=== PATIENT | male | born 1985 | race Caucasian/White ===

== ENCOUNTER 2017-09-13 19:15 | Emergency (ER) | payer BC ==
[~2017-09-13 19:15] MED LIST: AMOX-559 PO; LORA-630 PO; MECL25TA9 PO; MOMR ENA; NO HOME MEDS
--- NOTE | 2017-09-13 19:32 | ER Report ---
History and Physical Time Seen By MD: 19:20 Hx. of Stated Complaint: Patient reporting bilateral lower quadrant abdominal pain since yesterday. Worse while at work. Patient had nausea yesterday but today reports normal BM' s and no N/V/D HPI/ROS CHIEF COMPLAINT: Abdominal pain HISTORY OF PRESENT ILLNESS: Patient is a 32-year-old male who presents the ED with complaint of abdominal pain for the past day. He states that he started to notice some slight lower abdominal pain last night that has worsened today. He states that it was particularly worse while he was working. 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 He states that he did have some nausea but denies any vomiting. He has had normal bowel movements and denies any diarrhea or constipation. He denies any black or bloody bowel movements. He states that he has had no abdominal surgeries in the past. He denies any pain with eating. He has not noted any fever. REVIEW OF SYSTEMS: Constitutional: No fever, no chills. Cardiovascular: No chest pain, no palpitations. Respiratory: No cough, no shortness of breath. Gastrointestinal: See history of present illness. Genitourinary: Patient denies any hematuria, dysuria, increased urinary frequency, testicular pain. Musculoskeletal: No back pain. Skin: No rashes. Neurological: No headache. Allergies: Coded Allergies: No Known Drug Allergies (Unverified , 09/01/14) Home Meds Active Scripts Mometasone Furoate (NASONEX) 17 Gm Boykins, 17 GM CARRIE BID, #1 SPRAY 0 Refills Prov:JENNIFER RODRIGUEZ MD 10/23/15 Meclizine Hcl (MECLIZINE HCL) 25 Mg Tablet, 25 MG PO TID Y for DIZZINESS, #20 TAB 0 Refills Prov:JENNIFER RODRIGUEZ MD 10/23/15 Amoxicillin/Pot Clav 875-125 Mg Tab (AUGMENTIN 875-125 TABLET) 1 Each Tablet, 1 TAB PO Q12H, #20 TAB 0 Refills Prov:JENNIFER RODRIGUEZ MD 10/23/15 Hx Smoking: Yes Smoking Status: Current: Every Day Smoker Constitutional Vital Sign - Last 24 Hours 09/13/17 09/13/17 09/13/17 09/13/17 19:20 19:22 19:25 19:30 Temp 98.0 Pulse 85 88 95 Resp 19 B/P (MAP) 144/90 (108) 144/90 Pulse Ox 94 92 91 O2 Delivery Room Air 09/13/17 09/13/17 09/13/17 09/13/17 19:36 19:39 19:40 19:45 Temp 98.1 Pulse 83 84 B/P (MAP) 127/87 (100) 134/83 (100) Pulse Ox 89 91 09/13/17 09/13/17 09/13/17 09/13/17 19:50 19:55 20:00 20:05 Pulse 83 84 89 85 B/P (MAP) 142/76 (98) Pulse Ox 91 91 89 91 09/13/17 09/13/17 09/13/17 09/13/17 20:10 20:15 20:20 20:35 Pulse 84 79 78 75 B/P (MAP) 122/80 (94) Pulse Ox 91 90 88 93 Physical Exam General Appearance: The patient is alert, has no immediate need for airway protection and no signs of toxicity. Patient appears to be no acute distress. Eyes: Pupils equal and round no pallor or injection. ENT, Mouth: Mucous membranes are moist. Respiratory: There are no retractions, lungs are clear to auscultation. Cardiovascular: Regular rate and rhythm. Gastrointestinal: There is right lower quadrant left lower quadrant tenderness with palpation. Patient states her right lower quadrant tenderness is more prevalent. No rebound or guarding is present. Normal bowel sounds in all 4 quadrants. Skin: Warm and dry, no rashes. Musculoskeletal: Neck is supple non tender. Extremities are nontender, nonswollen and have full range of motion. DIFFERENTIAL DIAGNOSIS: After history and physical exam differential diagnosis was considered for abdominal pain including but not limited to appendicitis, cholecystitis, gastritis and urinary tract infection. Medical Decision Making Data Points Result Diagram: 09/13/17193109/13/171931 Laboratory Hematology Test 09/13/17 19:32 Red Blood Count 5.21 M/uL (4.00-5.60) Mean Corpuscular Volume 93.0 fL (80.0-96.0) Mean Corpuscular Hemoglobin 33.3 pg (26.0-33.0) Mean Corpuscular Hemoglobin Concent 35.8 g/dL (32.0-36.0) Red Cell Distribution Width 13.1 % (11.5-14.5) Mean Platelet Volume 8.8 fL (7.2-11.1) Neutrophils (%) (Auto) 57.2 % (39.4-72.5) Lymphocytes (%) (Auto) 33.5 % (17.6-49.6) Monocytes (%) (Auto) 7.0 % (4.1-12.4) Eosinophils (%) (Auto) 1.0 % (0.4-6.7) Basophils (%) (Auto) 1.3 % (0.3-1.4) Nucleated RBC Relative Count (auto) 0.1 /100WBC Neutrophils # (Auto) 4.5 K/uL (2.0-7.4) Lymphocytes # (Auto) 2.6 K/uL (1.3-3.6) Monocytes # (Auto) 0.6 K/uL (0.3-1.0) Eosinophils # (Auto) 0.1 K/uL (0.0-0.5) Basophils # (Auto) 0.1 K/uL (0.0-0.1) Nucleated RBC Absolute Count (auto) 0.00 K/uL Peripheral Blood Smear No Y/N Urine Color Yellow Urine Clarity Clear Urine pH 6.0 pH (4.8-9.5) Urine Specific Walton 1.016 Urine Protein Negative mg/dL (NEGATIVE) Urine Glucose (UA) Negative mg/dL (NEGATIVE) Urine Ketones Negative mg/dL (NEGATIVE) Urine Blood Negative (NEGATIVE) Urine Nitrite Negative (NEGATIVE) Urine Bilirubin Negative (NEGATIVE) Urine Urobilinogen Negative mg/dL (0.2-1.9) Urine Leukocyte Esterase Negative (NEGATIVE) Urine RBC None /HPF (0-2/HPF) Urine WBC <1 /HPF (0-5/HPF) Urine Squamous Epithelial Cells None /LPF (</=FEW) Urine Bacteria Negative /HPF (NONE-FEW) Urine Mucus None /HPF (NONE-FEW) Sodium Level 140 mmol/L (137-145) Potassium Level 3.6 mmol/L (3.5-5.0) Chloride Level 103 mmol/L (98-107) Carbon Dioxide Level 27 mmol/L (22-30) Blood Urea Nitrogen 19 mg/dl (9-21) Creatinine 1.00 mg/dl (0.66-1.25) Glomerular Filtration Rate Calc > 60.0 Random Glucose 97 mg/dl (75-110) Calcium Level 9.5 mg/dl (8.4-10.2) Total Bilirubin 0.4 mg/dl (0.2-1.3) Aspartate Amino Transf (AST/SGOT) 28 U/L (0-35) Alanine Aminotransferase (ALT/SGPT) 41 U/L (0-56) Alkaline Phosphatase 82 U/L (0-126) Total Protein 7.6 gm/dl (6.3-8.2) Albumin 4.3 g/dl (3.5-5.0) Lipase 71 U/L (23-300) Chemistry Test 09/13/17 19:32 White Blood Count 7.9 k/uL (4.5-11.0) Red Blood Count 5.21 M/uL (4.00-5.60) Hemoglobin 17.3 g/dL (14.0-18.0) Hematocrit 48.4 % (42.0-52.0) Mean Corpuscular Volume 93.0 fL (80.0-96.0) Mean Corpuscular Hemoglobin 33.3 pg (26.0-33.0) Mean Corpuscular Hemoglobin Concent 35.8 g/dL (32.0-36.0) Red Cell Distribution Width 13.1 % (11.5-14.5) Platelet Count 249 K/uL (150-450) Mean Platelet Volume 8.8 fL (7.2-11.1) Neutrophils (%) (Auto) 57.2 % (39.4-72.5) Lymphocytes (%) (Auto) 33.5 % (17.6-49.6) Monocytes (%) (Auto) 7.0 % (4.1-12.4) Eosinophils (%) (Auto) 1.0 % (0.4-6.7) Basophils (%) (Auto) 1.3 % (0.3-1.4) Nucleated RBC Relative Count (auto) 0.1 /100WBC Neutrophils # (Auto) 4.5 K/uL (2.0-7.4) Lymphocytes # (Auto) 2.6 K/uL (1.3-3.6) Monocytes # (Auto) 0.6 K/uL (0.3-1.0) Eosinophils # (Auto) 0.1 K/uL (0.0-0.5) Basophils # (Auto) 0.1 K/uL (0.0-0.1) Nucleated RBC Absolute Count (auto) 0.00 K/uL Peripheral Blood Smear No Y/N Urine Color Yellow Urine Clarity Clear Urine pH 6.0 pH (4.8-9.5) Urine Specific Walton 1.016 Urine Protein Negative mg/dL (NEGATIVE) Urine Glucose (UA) Negative mg/dL (NEGATIVE) Urine Ketones Negative mg/dL (NEGATIVE) Urine Blood Negative (NEGATIVE) Urine Nitrite Negative (NEGATIVE) Urine Bilirubin Negative (NEGATIVE) Urine Urobilinogen Negative mg/dL (0.2-1.9) Urine Leukocyte Esterase Negative (NEGATIVE) Urine RBC None /HPF (0-2/HPF) Urine WBC <1 /HPF (0-5/HPF) Urine Squamous Epithelial Cells None /LPF (</=FEW) Urine Bacteria Negative /HPF (NONE-FEW) Urine Mucus None /HPF (NONE-FEW) Glomerular Filtration Rate Calc > 60.0 Calcium Level 9.5 mg/dl (8.4-10.2) Total Bilirubin 0.4 mg/dl (0.2-1.3) Aspartate Amino Transf (AST/SGOT) 28 U/L (0-35) Alanine Aminotransferase (ALT/SGPT) 41 U/L (0-56) Alkaline Phosphatase 82 U/L (0-126) Total Protein 7.6 gm/dl (6.3-8.2) Albumin 4.3 g/dl (3.5-5.0) Lipase 71 U/L (23-300) Urinalysis Test 09/13/17 19:32 Urine Color Yellow Urine Clarity Clear Urine pH 6.0 pH (4.8-9.5) Urine Specific Walton 1.016 Urine Protein Negative mg/dL (NEGATIVE) Urine Glucose (UA) Negative mg/dL (NEGATIVE) Urine Ketones Negative mg/dL (NEGATIVE) Urine Blood Negative (NEGATIVE) Urine Nitrite Negative (NEGATIVE) Urine Bilirubin Negative (NEGATIVE) Urine Urobilinogen Negative mg/dL (0.2-1.9) Urine Leukocyte Esterase Negative (NEGATIVE) Urine RBC None /HPF (0-2/HPF) Urine WBC <1 /HPF (0-5/HPF) Urine Squamous Epithelial Cells None /LPF (</=FEW) Urine Bacteria Negative /HPF (NONE-FEW) Urine Mucus None /HPF (NONE-FEW) EKG/Imaging Imaging CT Abdomen/Pelvis: IMPRESSION: Negative CT abdomen and pelvis. Report Dictated By: Sebastian Leal MD at 09/13/2017 8:48 PM Report E-Signed By: Sebastian Leal MD at 09/13/2017 8:55 PM ED Course/Re-evaluation Clinical Indication for ER IV: Hydration ED Course Will obtain labs from patient. 09/13/2017 9:03:22 pm - discussed all labs and imaging with patient. There appears to be no evidence of appendicitis or other acute abdominal issue. Do not find any hernia on exam but he does have pain in the right inguinal area. However there is no palpable mass. Discussed with him that he should follow up with his primary care provider regarding this and having further imaging or referral if needed for possible/potential hernia. Decision to Disposition Date: Sep 13, 2017 Decision to Disposition Time: 21:04 Depart Departure Latest Vital Signs Vital Signs Date Time Temp Pulse Resp B/P (MAP) Pulse Ox O2 Delivery O2 Flow Rate FiO2 09/13/17 20:35 75 93 09/13/17 20:20 122/80 (94) 09/13/17 19:39 98.1 09/13/17 19:22 19 Room Air Impression: Primary Impression: Abdominal pain Condition: Improved Disposition: HOME OR SELF-CARE Referrals: CHRISSY CHUA MD Patient Instructions: Abdominal Pain (ED), Inguinal Hernia (ED) Additional Instructions: Follow-up with primary care provider in 2-3 days. Try to stay away from exertional activity. If having any worsening or concerning symptoms may return to the emergency department. Problem Qualifiers Primary Impression: Abdominal pain Abdominal location: lower abdomen, unspecified Qualified Codes: R10.30 - Lower abdominal pain, unspecified KYUNG LOMELI PA-C Sep 13, 2017 19:32
[2017-09-13 19:43] LABS: PLATELET COUNT, AUTOMATED 249 K/uL (150-450)
--- NOTE | 2017-09-13 20:59 | RADIOLOGY IMAGING REPORT ---
FACILITY: [facility] PATIENT NAME: Atif Muñoz : 1985 MR: [id number] V: [id number] EXAM DATE: ORDERING PHYSICIAN: KYUNG LOMELI TECHNOLOGIST: [place] [facility] [place]: Atif Muñoz : 1985 Visit/Account:[id number] Date of Sevice: 09/13/2017 EXAMINATION: CT abdomen and pelvis with contrast COMPARISON: None. HISTORY: Right and left lower quadrant abdominal pain. PROCEDURE: Multiplanar contrast enhanced CT of the abdomen and pelvis with 75 mL intravenous Isovue 3 70. One of the following dose optimization techniques was utilized in the performance of this exam: A utomated exposure control; adjustment of the mA and/or kV according to the patient's size; or use of an iterative reconstruction technique. Specific details can be referenced in the facility's radiolo gy CT exam operational policy. FINDINGS: Visualized thorax: Negative. Liver: Negative. Gallbladder and biliary system: Contracted but otherwise unremarkable gallbladder. No bile duct dilat ion. Spleen: Spleen size is normal. Pancreas: Negative. Adrenal glands: Negative. Kidneys and bladder: No renal mass or evidence of an obstructive uropathy. Urinary bladder is unrema rkable. Vessels: Within normal limits. Bowel and mesentery: Stomach is within normal limits. No small bowel obstruction. Appendix is unrem arkable. Small amount of stool within the colon. No bowel or mesenteric inflammation. Pelvic organs: Negative. Lymph nodes: No adenopathy. Free air/free fluid: None. Abdominal wall and osseous structures: Negative. IMPRESSION: Negative CT abdomen and pelvis. Report Dictated By: Sebastian Leal MD at 09/13/2017 8:48 PM Report E-Signed By: Sebastian Leal MD at 09/13/2017 8:55 PM WSN:[id number]
[2017-09-13 21:23] VITALS: BP 132/82
== END 2017-09-13 21:27 | disposition home or self-care (01) ==
LOC: ER 19:30
DX: R10.31 Right lower quadrant pain (principal); R10.32 Left lower quadrant pain; R11.0 Nausea
CPT/HCPCS: 74177; 81001; 83690; 85025; 99284; J7050; Q9967; 82040; 82247; 82310; 82374; 82435; 82565; 82947; 84075; 84132; 84155; 84295; 84450; 84460; 84520

== ENCOUNTER 2018-08-04 19:10 | Emergency (ER) | payer BC ==
[2018-08-04 19:14] VITALS: BP 145/88
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
[2018-08-04] MEDS ORDERED: ACET/HYDROC 5/325MG TH ER ONLY 2 TAB/BOTTLE PO ONE (20:25)
[2018-08-04] MEDS ORDERED: LOR5/325 PO (20:26)
== END 2018-08-04 20:43 | disposition home or self-care (01) ==
LOC: ER 19:22
DX: S46.911A Strain of unspecified muscle, fascia and tendon at shoulder and upper arm level, right arm, initial encounter (principal); V86.52XA Driver of snowmobile injured in nontraffic accident, initial encounter
CPT/HCPCS: 71046; 71100; 99284; A4565